=== PATIENT | male | born 1955 ===

== ENCOUNTER 2016-05-26 01:02 | Emergency (ER) | payer MEDICAID ==
[2016-05-26 01:19] VITALS: BP 152/99; PULSE 78; RESP 18; TEMP 98.4; O2SAT 96
[2016-05-26] MEDS ORDERED: TDAP Vaccine 0.5 mL Syr IM ONE (01:36)
--- NOTE | 2016-05-26 02:11 | ED PDOC ---
Upper Extremity Pain/Injury Time Seen by Provider: 05/26/16 01:10 Chief Complaint (Nursing): Abnormal Skin Integrity Chief Complaint (Provider): RIGHT HAND INJURY History Per: Patient (60 Y/O MALE HERE FOR EVALUATION OF RIGHT HAND INJURY THAT OCCURRED AFTER WINDOW FELL ON HAND. PATIENT RIGHT HAND DOMINANT. NOTES DISCOMFORT INDEX FINGER WITH DIFFICULTY FLEXING.) Past Medical History Reviewed: Historical Data, Nursing Documentation, Vital Signs Vital Signs: Last Vital Signs Temp 98.4 F 05/26/16 01:16 Pulse 78 05/26/16 01:16 Resp 18 05/26/16 01:16 BP 152/99 H 05/26/16 01:16 Pulse Ox 96 05/26/16 01:16 - Family History Family History: States: Unknown Family Hx - Immunization History Hx Tetanus Toxoid Vaccination: No Hx Influenza Vaccination: No Hx Pneumococcal Vaccination: No - Home Medications Home Medications: Ambulatory Orders Medication Instructions Recorded Acetaminophen/Oxycodone Hydr 1 tab PO Q6 #15 tab 12/31/13 [Percocet 325 mg-5 mg] Ibuprofen [Motrin] 600 mg PO TID PRN #20 tab 12/31/13 Tramadol 1 tab PRN PRN 12/31/13 Cephalexin [cephalexin] 1 tab PO QID #20 cap 05/26/16 Ibuprofen [Motrin] 600 mg PO Q8 PRN #21 tab 05/26/16 - Allergies Allergies/Adverse Reactions: Allergies Allergy/AdvReac Type Severity Reaction Status Date / Time No Known Allergies Allergy Verified 05/26/16 01:16 Review of Systems ROS Statement: Except As Marked, All Systems Reviewed And Found Negative Musculoskeletal: Positive for: Hand Pain Physical Exam - Reviewed Nursing Documentation Reviewed: Yes Vital Signs Reviewed: Yes - Physical Exam Appears: Positive for: Well, Non-toxic, No Acute Distress Head Exam: Positive for: ATRAUMATIC, NORMAL INSPECTION, NORMOCEPHALIC Skin: Positive for: Normal Color, Warm, DRY Eye Exam: Positive for: EOMI, Normal appearance, PERRL ENT: Positive for: Normal ENT Inspection Neck: Positive for: Normal, Painless ROM Cardiovascular/Chest: Positive for: Regular Rate, Rhythm Respiratory: Positive for: CNT, Normal Breath Sounds Gastrointestinal/Abdominal: Positive for: Normal Exam, Bowel Sounds, Soft Back: Positive for: Normal Inspection Extremity: Positive for: Normal ROM, Other (1.5 CM AVULSION-LACERATION DORSAL SURFACE OF INDEX FINGER RIGHT HAND. EXAM LIMITED DUE TO PAIN. SMALL ABRASION NOTED ON THUMB. GOOD FUNCTION OF THUMB) Neurologic/Psych: Positive for: Alert, Oriented - ECG O2 Sat by Pulse Oximetry: 96 - Progress ED Course And Treament: TDAP 0.5 ML IM X 1 DOSE keflex 500 mg x 1 dose Disposition - Clinical Impression Clinical Impression: Finger contusion, Finger laceration - Patient ED Disposition Is Patient to be Admitted: No - Disposition Disposition: Routine/Home Disposition Time: 04:41 Condition: FAIR Additional Instructions: F/U WITH ED OR PMD IN 2 DAYS FOR WOUND CHECK. RETURN OR F/U WITH PMD IN 8-10 DAYS TO REMOVE SUTURES. Prescriptions: Cephalexin [cephalexin] 1 tab PO QID #20 cap Ibuprofen [Motrin] 600 mg PO Q8 PRN #21 tab PRN Reason: Fever >100.4 F Instructions: Finger Laceration (ED) Forms: [facility] ED School/Work Excuse Print Language: FAROESE Procedure: Wound Repair - Time Performed Time Performed: 04:39 - Time Out Time Out: Site verified - Consent Obtained Consent obtained: Verbal - Performed by Performed by: Mid-level Provider - Indications Indication(s):: Laceration - Location Location:: Right, Hand Finger:: Right, Index Dimensions Length cm: 2 cm Depth:: Epidermis - Anesthetic Technique Anesthetic Technique: Local Local/Regional Anesthetic:: Lidocaine 1% - Irrigated Irrigated with ml of normal saline: 100ml - Complexity Complexity:: Simple (one layer) - Wound repair method Sutures:: # (three ), Size (4-0), Type (prolene), Technique (interrupted) - Patient tolerated procedure Patient Tolerated Procedure:: Well
[2016-05-26] MEDS ORDERED: Lidocaine 1% Inj (20ml) IJ ONE (03:17)
[2016-05-26] MEDS ORDERED: Lidocaine 1% Inj (20ml) ONE ×2 (03:40→03:44)
--- NOTE | 2016-05-26 12:31 | RAD ---
PROCEDURE: Right Hand Radiographs. HISTORY: window fell on hand. Pain mostly to index finger COMPARISON: None. FINDINGS: BONES: Bone alignment and mineralization are normal. There is no acute fracture or bone destruction. JOINTS: Normal. No osteoarthritic changes. SOFT TISSUES: There is soft tissue defect of the index finger at the proximal interphalangeal joint and diffuse soft tissue swelling. OTHER FINDINGS: None. IMPRESSION: No acute fracture or dislocation. Index finger laceration at the proximal interphalangeal joint.
== END 2016-05-26 04:45 | disposition home or self-care (01) ==
LOC: H.ER 01:02
DX: S61.200A Unspecified open wound of right index finger without damage to nail, initial encounter (principal); W22.8XXA Striking against or struck by other objects, initial encounter; Y92.89 Other specified places as the place of occurrence of the external cause